=== PATIENT | female | born 2000 | race Caucasian/White ===

== ENCOUNTER 2022-04-05 13:19 | Emergency (ER) | payer BC ==
[~2022-04-05] VITALS: Ht 165.1 cm; Wt 74.8 kg
[~2022-04-05 13:19] MED LIST: [UNRECOGNIZED DRUG - REMARK] INH
[2022-04-05 13:26] VITALS: BP 119/67
--- NOTE | 2022-04-05 13:40 | NUR ---
pt swabbed for covid(henry) and flu. walked and handed to lab
--- NOTE | 2022-04-05 13:45 | NUR ---
21YO FEMALE PT C/O N/V-BLOOD AND SHARP RL ABD PAIN X3DAYS. REPORTS SUDDEN ONSET ALONG WITH HEAD/BODY ACHES AND GENERAL WEAKNESS. DENIES CHEST PAIN, SOB, FEVER OR CHILLS. ABD NON TENDER OR DISTENED. +URINE , UNAWARE OF PRIOR TO ARRIVAL. G1 LMP 03/07/22. PT AAOX4, RESPIRATIONS EVEN AND UNLABORED. 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 HX:DENIES NKA
[2022-04-05 13:46] LABS: APPEARANCE,URINE SL CLOUDY (CLEAR); BILIRUBIN,URINE NEGATIVE (NEGATIVE); BLOOD, URINE NEGATIVE (NEGATIVE); COLOR,URINE YELLOW (YELLOW); LEUKOCYTE ESTERASE ,URINE TRACE (NEGATIVE); NITRITE, URINE POSITIVE (NEGATIVE); UGLUCOSE NEGATIVE (NEGATIVE)
[2022-04-05 13:58] LABS: RBC,URINE 0-5 /HPF (0-5)
[2022-04-05 13:59] LABS: OTHER CASTS, URINE None Seen /LPF (None Seen)
--- NOTE | 2022-04-05 14:15 | NUR ---
US AT BEDSIDE
[2022-04-05 14:37] LABS: BASOPHILS % (AUTO) 0.2 % (0.0-2.0); EOSINOPHILS % (AUTO) 0.5 % (0.0-4.0); HEMOGLOBIN 12.8 g/dL (12.0-16.0); LYMPHOCYTES # (AUTO) 1.2 K/uL (2.5-16.5); LYMPHOCYTES % (AUTO) 16.5 % (20.5-51.1); MEAN CORPUSCULAR HEMOGLOBIN 31 pg (27-31); MEAN CORPUSCULAR HGB CONC 34 g/dL (33-37); MEAN CORPUSCULAR VOLUME 91.5 fL (80-94); MONOCYTES # (AUTO) 0.5 K/uL (0.8-1.0); MONOCYTES % (AUTO) 6.6 % (1.7-9.3); NEUTROPHILS # (AUTO) 5.4 K/uL (1.8-7.7); NEUTROPHILS % (AUTO) 76.2 % (42.2-75.2); PLATELET COUNT (AUTO) 311 K/uL (140-450); RED BLOOD CELL COUNT(AUTO) 4.16 MIL/uL (4.20-5.40); RED CELL DISTRIBUTION WIDTH 13.4 % (11.6-13.7); WHITE BLOOD COUNT (AUTO) 7.1 K/uL (4.5-11.0)
[2022-04-05 15:03] VITALS: BP 117/53
[2022-04-05] MEDS ORDERED: DOXY1TCP PO (15:41)
[2022-04-05] MEDS ORDERED: CEPH-588 PO (15:41)
[2022-04-05] MEDS ORDERED: PNV1TABL5 PO (15:43)
--- NOTE | 2022-04-05 15:57 | NUR ---
Patient discharged with v/s stable. Written and verbal after care instructions FOR UTI AND MORNING SICKNESS given and explained. Patient alert, oriented and verbalized understanding of instructions. Ambulatory with steady gait. All questions addressed prior to discharge. ID band removed. Patient advised to follow up with PMD. Rx of KELFEX, DICLEGIS AND MULTI TAB given. Opportunity to ask questions provided and answered.
--- NOTE | 2022-04-05 16:04 | NUR ---
The patient's care was reviewed and supervised by Fult[place] 05 LAYNE, RN.
== END 2022-04-05 15:57 | disposition home or self-care (01) ==
LOC: MED 13:19
DX: O46.91 Antepartum hemorrhage, unspecified, first trimester (principal); Z20.822 Contact with and (suspected) exposure to COVID-19; O23.41 Unspecified infection of urinary tract in pregnancy, first trimester; N39.0 Urinary tract infection, site not specified; Z3A.01 Less than 8 weeks gestation of pregnancy; J45.909 Unspecified asthma, uncomplicated
CPT/HCPCS: 36415; 76817; 81001; 81025; 84702; 85025; 86900; 86901; 87086; 87426; 87804; 99284; Q0092

== ENCOUNTER 2022-06-23 13:55 | Emergency (ER) | payer BC ==
[~2022-06-23] VITALS: Ht 170.2 cm; Wt 85.3 kg
[~2022-06-23 13:55] MED LIST changes: +CEPH-588 PO; +DOXY1TCP PO; +PNV1TABL5 PO
[2022-06-23 14:00] VITALS: BP 141/94
--- NOTE | 2022-06-23 14:05 | NUR ---
PT AMBULATED TO ER BED 3
[2022-06-23] MEDS ORDERED: NACL 0.9% 1,000 ML IV ONE (14:20)
[2022-06-23] MEDS ORDERED: METOCLOPRAMIDE 10 MG/2 ML INJ VIAL IVP ONE (14:20)
[2022-06-23 14:54] LABS: APPEARANCE,URINE CLEAR (CLEAR); BILIRUBIN,URINE NEGATIVE (NEGATIVE); BLOOD, URINE NEGATIVE (NEGATIVE); COLOR,URINE YELLOW (YELLOW); LEUKOCYTE ESTERASE ,URINE NEGATIVE (NEGATIVE); NITRITE, URINE NEGATIVE (NEGATIVE); UGLUCOSE NEGATIVE (NEGATIVE)
[2022-06-23 14:56] LABS: BASOPHILS % (AUTO) 0.1 % (0.0-2.0); EOSINOPHILS % (AUTO) 0.3 % (0.0-4.0); HEMATOCRIT 33.8 % (36-48); HEMOGLOBIN 11.7 g/dL (12.0-16.0); LYMPHOCYTES # (AUTO) 0.8 K/uL (2.5-16.5); MEAN CORPUSCULAR HEMOGLOBIN 31 pg (27-31); MEAN CORPUSCULAR HGB CONC 35 g/dL (33-37); MEAN CORPUSCULAR VOLUME 90.9 fL (80-94); MONOCYTES # (AUTO) 0.5 K/uL (0.8-1.0); NEUTROPHILS # (AUTO) 3.1 K/uL (1.8-7.7); NEUTROPHILS % (AUTO) 70.6 % (42.2-75.2); PLATELET COUNT (AUTO) 267 K/uL (140-450); RED BLOOD CELL COUNT(AUTO) 3.72 MIL/uL (4.20-5.40); RED CELL DISTRIBUTION WIDTH 13.3 % (11.6-13.7); WHITE BLOOD COUNT (AUTO) 4.4 K/uL (4.5-11.0)
[2022-06-23 15:17] LABS: ALBUMIN 3.2 g/dL (3.4-5.0); ANION GAP 12.1 (8-16); CARBON DIOXIDE 26.2 mmol/L (21-32); CREATININE 0.6 mg/dL (0.6-1.3); POTASSIUM 3.3 mmol/L (3.5-5.1); TOTAL BILIRUBIN 0.2 mg/dL (0.0-1.0)
[2022-06-23] MEDS ORDERED: SODIUM PHOS / POTASSIUM PHOS 1 PKT PDR PO SCH (15:50)
[2022-06-23] MEDS ORDERED: PYRI-218 PO (15:51)
[2022-06-23] MEDS ORDERED: DOXY1TAB4 PO (15:52)
[2022-06-23 16:21] VITALS: BP 106/57
--- NOTE | 2022-06-23 16:22 | NUR ---
Patient discharged with v/s stable. Written and verbal after care instructions ABOUT SECOND TRIMESTER OF PREG given and explained. Patient alert, oriented and verbalized understanding of instructions. Ambulatory with steady gait. All questions addressed prior to discharge. ID band removed. Patient advised to follow up with PMD. Rx of BONJESTA ER 20-20 given. Patient educated on indication of medication including possible reaction and side effects. Opportunity to ask questions provided and answered.
== END 2022-06-23 16:21 | disposition home or self-care (01) ==
LOC: MED 13:55
DX: O26.892 Other specified pregnancy related conditions, second trimester (principal); R10.31 Right lower quadrant pain; O21.8 Other vomiting complicating pregnancy; O99.512 Diseases of the respiratory system complicating pregnancy, second trimester; J45.909 Unspecified asthma, uncomplicated; Z3A.18 18 weeks gestation of pregnancy; Z79.899 Other long term (current) drug therapy; Z79.2 Long term (current) use of antibiotics
CPT/HCPCS: 36415; 76805; 80053; 81003; 81025; 83690; 84702; 85025; 96361; 96374; 99285; J2765; J7030; Q0092

== ENCOUNTER 2022-06-30 20:57 | Emergency (ER) | payer BC ==
[~2022-06-30] VITALS: Ht 170.2 cm; Wt 84.8 kg
[~2022-06-30 20:57] MED LIST changes: +DOXY1TAB4 PO
[2022-06-30 21:22] VITALS: BP 115/69
--- NOTE | 2022-06-30 21:23 | NUR ---
Dr. Petersen examining patient.
--- NOTE | 2022-06-30 21:40 | NUR ---
Patient taken to bed 11.
--- NOTE | 2022-06-30 21:45 | NUR ---
Patient received on bed lying comfortably and awake. Alert and oriented x4. No acute distress. Complained of suprapubic pain with scale of 3/10. Complained of mild vaginal bleeding. Respirations even and unlabored.
[2022-06-30 21:51] LABS: BASOPHILS % (AUTO) 0.3 % (0.0-2.0); EOSINOPHILS # (AUTO) 0.1 K/uL (0-0.4); EOSINOPHILS % (AUTO) 0.8 % (0.0-4.0); HEMATOCRIT 36.1 % (36-48); HEMOGLOBIN 12.4 g/dL (12.0-16.0); LYMPHOCYTES # (AUTO) 1.6 K/uL (2.5-16.5); LYMPHOCYTES % (AUTO) 21.6 % (20.5-51.1); MEAN CORPUSCULAR HEMOGLOBIN 31 pg (27-31); MEAN CORPUSCULAR HGB CONC 34 g/dL (33-37); MEAN CORPUSCULAR VOLUME 90.5 fL (80-94); MONOCYTES # (AUTO) 0.5 K/uL (0.8-1.0); MONOCYTES % (AUTO) 7.4 % (1.7-9.3); NEUTROPHILS # (AUTO) 5.2 K/uL (1.8-7.7); NEUTROPHILS % (AUTO) 69.9 % (42.2-75.2); PLATELET COUNT (AUTO) 344 K/uL (140-450); RED BLOOD CELL COUNT(AUTO) 3.98 MIL/uL (4.20-5.40); RED CELL DISTRIBUTION WIDTH 13.5 % (11.6-13.7); WHITE BLOOD COUNT (AUTO) 7.4 K/uL (4.5-11.0)
[2022-06-30 22:05] LABS: ANION GAP 12.4 (8-16); CARBON DIOXIDE 25.4 mmol/L (21-32); CREATININE 0.5 mg/dL (0.6-1.3); POTASSIUM 3.8 mmol/L (3.5-5.1)
--- NOTE | 2022-06-30 22:16 | NUR ---
Ultrasound at bedside.
[2022-06-30 22:49] LABS: APPEARANCE,URINE CLEAR (CLEAR); BILIRUBIN,URINE NEGATIVE (NEGATIVE); BLOOD, URINE NEGATIVE (NEGATIVE); COLOR,URINE YELLOW (YELLOW); LEUKOCYTE ESTERASE ,URINE NEGATIVE (NEGATIVE); NITRITE, URINE NEGATIVE (NEGATIVE); UGLUCOSE NEGATIVE (NEGATIVE)
--- NOTE | 2022-06-30 23:53 | NUR ---
Dr. Petersen examining patient.
--- NOTE | 2022-06-30 23:58 | NUR ---
Patient discharged with v/s stable. Written and verbal after care instructions given and explained. Patient verbalized understanding. Ambulatory with steady gait. All questions addressed prior to discharge. Advised to follow up with PMD.
[2022-07-01 00:01] VITALS: BP 124/76
== END 2022-06-30 23:58 | disposition home or self-care (01) ==
LOC: MED 20:57
DX: O46.92 Antepartum hemorrhage, unspecified, second trimester (principal); Z3A.15 15 weeks gestation of pregnancy
CPT/HCPCS: 36415; 76815; 80048; 81003; 81025; 85025; 99284; Q0092

== ENCOUNTER 2022-08-17 16:30 | Observation (INO) | payer BC ==
[~2022-08-17] VITALS: Ht 170.2 cm; Wt 88.0 kg
[2022-08-17 16:48] VITALS: BP 118/58
[2022-08-17] MEDS ORDERED: PRETAB PO (17:02)
== END 2022-08-17 20:56 | disposition home or self-care (01) ==
LOC: MLD 16:30
PROVIDERS: ADMIT Obstetrics & Gynecology; ATTEND Obstetrics & Gynecology
DX: O26.892 Other specified pregnancy related conditions, second trimester (principal); R10.31 Right lower quadrant pain; Z3A.23 23 weeks gestation of pregnancy
CPT/HCPCS: 59025; 76805; 81000; G0378; Q0092

== ENCOUNTER 2023-06-07 12:42 | Emergency (ER) | payer BC, OTHER ==
[~2023-06-07] VITALS: Ht 170.2 cm; Wt 83.9 kg
[~2023-06-07 12:42] MED LIST changes: -CEPH-588 PO; -DOXY1TAB4 PO; -DOXY1TCP PO; -PNV1TABL5 PO; +PRETAB PO; -[UNRECOGNIZED DRUG - REMARK] INH
[2023-06-07 12:52] VITALS: BP 116/70; PULSE 111; RESP 18; TEMP 97.8; O2SAT 98
[2023-06-07] MEDS ORDERED: CEPH-588 PO (14:43)
[2023-06-07] MEDS ORDERED: IBUP-2213 PO (14:43)
[2023-06-07] MEDS ORDERED: CYCL-711 PO (14:43)
[2023-06-07] MEDS: IBUPROFEN 600 MG TAB PO ONE (14:45)
[2023-06-07] MEDS: LIDOCAINE MPF 1% 10 MG/ML VIAL INJ ONE (14:45)
== END 2023-06-07 15:12 | disposition home or self-care (01) ==
LOC: MED 12:42
DX: S39.92XA Unspecified injury of lower back, initial encounter (principal); L05.91 Pilonidal cyst without abscess; J45.909 Unspecified asthma, uncomplicated; Z79.899 Other long term (current) drug therapy; W01.0XXA Fall on same level from slipping, tripping and stumbling without subsequent striking against object, initial encounter; Y92.89 Other specified places as the place of occurrence of the external cause; Y93.89 Activity, other specified; Y99.8 Other external cause status
CPT/HCPCS: 10080; 72220; 81002; 81025; 99284; J2001

== ENCOUNTER 2023-06-09 10:48 | Emergency (ER) | payer OTHER ==
[~2023-06-09] VITALS: Ht 170.2 cm; Wt 83.9 kg
[~2023-06-09 10:48] MED LIST changes: +CEPH-588 PO; +CYCL-711 PO; +IBUP-2213 PO
[2023-06-09 11:16] VITALS: BP 102/76; PULSE 91; RESP 18; TEMP 97.5; O2SAT 100
== END 2023-06-09 11:38 | disposition home or self-care (01) ==
LOC: MED 10:48
DX: Z48.817 Encounter for surgical aftercare following surgery on the skin and subcutaneous tissue (principal); J45.909 Unspecified asthma, uncomplicated
CPT/HCPCS: 99281

== ENCOUNTER 2023-09-26 23:04 | Emergency (ER) | payer OTHER ==
[~2023-09-26] VITALS: Ht 170.2 cm; Wt 85.3 kg
[2023-09-26 23:20] VITALS: BP 117/66; PULSE 96; RESP 16; TEMP 97.3; O2SAT 98
[2023-09-27] MEDS: IBUPROFEN 600 MG TAB PO ONE (00:15)
[2023-09-27] MEDS ORDERED: CYCL-711 PO (00:16)
[2023-09-27] MEDS ORDERED: ACET-10509 PO (00:16)
[2023-09-27] MEDS ORDERED: SULF-58 PO (00:16)
== END 2023-09-27 00:20 | disposition home or self-care (01) ==
LOC: MED 23:04
DX: L03.311 Cellulitis of abdominal wall (principal); L03.317 Cellulitis of buttock; J45.909 Unspecified asthma, uncomplicated; Z79.1 Long term (current) use of non-steroidal anti-inflammatories (NSAID); Z79.2 Long term (current) use of antibiotics; Z79.899 Other long term (current) drug therapy
CPT/HCPCS: 99283